=== PATIENT | female | born 1990 | race Caucasian/White ===

== ENCOUNTER 2022-08-18 17:29 | Inpatient (IN) | payer MEDICARE, OTHER ==
[~2022-08-18] VITALS: Ht 167.6 cm; Wt 90.9 kg
[2022-08-18] MEDS ORDERED: ESTR-95 PO (17:55)
[2022-08-18] MEDS ORDERED: CITA10TA99 PO (17:55)
[2022-08-18] MEDS ORDERED: SPIR50TA27 PO (17:55)
[2022-08-18] MEDS ORDERED: LAMO100 PO (17:55)
[2022-08-18 20:45] LABS: BASOPHILS % (AUTO) 1.2 % (0.0-2.0); EOSINOPHILS % (AUTO) 8.2 % (1.0-6.0); HEMATOCRIT 37.7 % (36-46); HEMOGLOBIN 12.6 g/dL (12.0-16.0); LYMPHOCYTES # (AUTO) 2.2 K/uL (1.0-4.8); LYMPHOCYTES % (AUTO) 21.7 % (22.0-44.0); MEAN CORPUSCULAR HEMOGLOBIN 29.2 pg (26.0-34.0); MEAN CORPUSCULAR HGB CONC 33.4 G/dL (31.0-37.0); MEAN CORPUSCULAR VOLUME 87 fL (80-100); MONOCYTES # (AUTO) 0.7 K/uL (0.1-1.0); MONOCYTES % (AUTO) 7.1 % (2.0-9.0); NEUTROPHILS # (AUTO) 6.3 K/uL (1.8-7.7); NEUTROPHILS % (AUTO) 61.8 % (40.0-70.0); PLATELET COUNT (AUTO) 447 K/uL (150-450); RED BLOOD CELL COUNT(AUTO) 4.31 MIL/uL (4.00-5.20); RED CELL DISTRIBUTION WIDTH 13.6 % (11.5-14.5)
[2022-08-18] MEDS ORDERED: HALOPERIDOL 5 MG TABLET PO ONE (20:45)
[2022-08-18] MEDS ORDERED: LORazepam 2 MG TABLET PO ONE (20:45)
[2022-08-18 20:55] LABS: ANION GAP 7 mmol/L (8-16); CALCIUM, TOTAL 9.7 mg/dL (8.8-10.5); CARBON DIOXIDE 28 mmol/L (22-29); CHLORIDE 98 mmol/L (98-107); CREATININE 0.84 mg/dL (0.60-1.30); GLUCOSE,RANDOM 97 mg/dL (70-110); POTASSIUM 4.1 mmol/L (3.5-5.1); SODIUM SERUM 133 mmol/L (136-145); UREA NITROGEN, BLOOD 11 mg/dL (7-18)
[2022-08-18 20:56] LABS: GLOMERULAR FILTR. RATE CALC > 60 mL/min (>60)
[2022-08-18 21:00] LABS: ALANINE AMINOTRANSFERASE 34 U/L (12-78); ALBUMIN 3.6 g/dL (3.4-5.0); ALKALINE PHOSPHATASE 40 U/L (46-116); ASPARTATE AMINOTRANSFERASE 34 U/L (15-37); BILIRUBIN,TOTAL 0.3 mg/dL (0.1-1.0); TOTAL PROTEIN, SERUM 7.6 g/dL (6.4-8.2)
[2022-08-18 23:38] LABS: COVID AG,FIA SOURCE NASAL SWAB
[2022-08-19] MEDS ORDERED: ZOLPIDEM TARTRATE 10 MG TABLET PO PRN (00:30)
[2022-08-19] MEDS ORDERED: HALOPERIDOL 5 MG TABLET PO PRN (00:30)
[2022-08-19] MEDS ORDERED: LORazepam 2 MG TABLET PO PRN (00:30)
[2022-08-19] MEDS ORDERED: ONDANSETRON HCL 4 MG/2 ML VIAL IVP PRN ×2 (02:00→11:00)
[2022-08-19] MEDS ORDERED: 0.9% SODIUM CHLORIDE 10 ML SYRINGE IVP PRN (02:00)
[2022-08-19] MEDS ORDERED: ACETAMINOPHEN 325 MG TABLET PO PRN ×2 (02:00→11:00)
[2022-08-19] MEDS ORDERED: BENZONATATE 100 MG CAPSULE PO ONE (04:45)
[2022-08-19] MEDS ORDERED: IPRATROPIUM BROMIDE 0.5 MG/2.5 ML NEB SOLUTION NEB PRN (11:00)
[2022-08-19] MEDS ORDERED: BISACODYL 10 MG RECTAL RECTAL SUPPOSITORY PR PRN (11:00)
[2022-08-19] MEDS ORDERED: ALBUTEROL SULFATE 2.5 MG/0.5 ML NEB SOLUTION NEB PRN (11:00)
[2022-08-19] MEDS ORDERED: ZOLPIDEM TARTRATE 5 MG TABLET PO PRN (11:00)
[2022-08-19] MEDS ORDERED: MAGNESIUM HYDROXIDE SUSPENSION 30 ML UDCUP PO PRN (11:00)
[2022-08-19] MEDS: HEPARIN SODIUM,PORCINE 5,000 UNITS/ML VIAL SQ SCH ×2 (16:17→23:00)
[2022-08-19] MEDS ORDERED: PROG100C24 PO (20:19)
[2022-08-19] MEDS ORDERED: CITA-144 PO (20:19)
[2022-08-19] MEDS ORDERED: FINA1TAB17 PO (20:19)
[2022-08-19 20:45] VITALS: BP 136/99
[2022-08-19] MEDS: DOCUSATE SODIUM 100 MG CAPSULE PO SCH (21:00)
[2022-08-19] MEDS: SPIRONOLACTONE 50 MG TABLET PO SCH (21:57)
[2022-08-19] MEDS: ESTRADIOL 1 MG TABLET PO SCH (22:59)
[2022-08-20 04:54] VITALS: BP 109/79
[2022-08-20 08:06] VITALS: BP 124/75
[2022-08-20 08:52] LABS: BASOPHILS % (AUTO) 0.7 % (0.0-2.0); EOSINOPHILS % (AUTO) 9.9 % (1.0-6.0); HEMATOCRIT 37.1 % (36-46); HEMOGLOBIN 12.4 g/dL (12.0-16.0); LYMPHOCYTES # (AUTO) 2.1 K/uL (1.0-4.8); LYMPHOCYTES % (AUTO) 26.1 % (22.0-44.0); MEAN CORPUSCULAR HEMOGLOBIN 29.2 pg (26.0-34.0); MEAN CORPUSCULAR HGB CONC 33.4 G/dL (31.0-37.0); MEAN CORPUSCULAR VOLUME 87 fL (80-100); MONOCYTES # (AUTO) 0.5 K/uL (0.1-1.0); MONOCYTES % (AUTO) 6.3 % (2.0-9.0); NEUTROPHILS # (AUTO) 4.6 K/uL (1.8-7.7); PLATELET COUNT (AUTO) 418 K/uL (150-450); RED BLOOD CELL COUNT(AUTO) 4.25 MIL/uL (4.00-5.20); RED CELL DISTRIBUTION WIDTH 13.7 % (11.5-14.5)
[2022-08-20] MEDS: DOCUSATE SODIUM 100 MG CAPSULE PO SCH ×3 (09:00→21:08)
[2022-08-20] MEDS: PANTOPRAZOLE SODIUM 40 MG/VIAL IVP SCH (09:00)
[2022-08-20] MEDS ORDERED: ESTRADIOL 1 MG TABLET PO SCH (09:00)
[2022-08-20 09:46] LABS: ALANINE AMINOTRANSFERASE 51 U/L (12-78); ALBUMIN 3.2 g/dL (3.4-5.0); ALKALINE PHOSPHATASE 37 U/L (46-116); ANION GAP 9 mmol/L (8-16); ASPARTATE AMINOTRANSFERASE 67 U/L (15-37); BILIRUBIN,TOTAL 0.4 mg/dL (0.1-1.0); CALCIUM, TOTAL 9.1 mg/dL (8.8-10.5); CARBON DIOXIDE 25 mmol/L (22-29); CHLORIDE 98 mmol/L (98-107); GLUCOSE,RANDOM 168 mg/dL (70-110); POTASSIUM 3.7 mmol/L (3.5-5.1); SODIUM SERUM 132 mmol/L (136-145); TOTAL PROTEIN, SERUM 7.1 g/dL (6.4-8.2); UREA NITROGEN, BLOOD 10 mg/dL (7-18)
[2022-08-20 09:47] LABS: GLOMERULAR FILTR. RATE CALC > 60 mL/min (>60)
[2022-08-20] MEDS: LamoTRIgine 100 MG TABLET PO SCH (09:56)
[2022-08-20] MEDS: HEPARIN SODIUM,PORCINE 5,000 UNITS/ML VIAL SQ SCH ×3 (09:56→23:33)
[2022-08-20] MEDS: SPIRONOLACTONE 50 MG TABLET PO SCH ×2 (09:56→21:08)
[2022-08-20] MEDS: ESTRADIOL 1 MG TABLET PO SCH ×2 (09:56→21:08)
[2022-08-20] MEDS ORDERED: LamoTRIgine 100 MG TABLET PO SCH (10:30)
[2022-08-20] MEDS: ESCITALOPRAM OXALATE 10 MG TABLET PO SCH (11:41)
[2022-08-20 15:46] VITALS: BP 131/79
[2022-08-20] MEDS: GuaiFENesin/D-METHORPHAN [SUGAR-FREE] 200-20MG/10 ML SYRUP UDCUP PO PRN ×2 (16:50→21:08)
[2022-08-20] MEDS: BENZONATATE 100 MG CAPSULE PO SCH ×2 (16:50→23:33)
[2022-08-20 19:51] VITALS: BP 129/77
[2022-08-21 05:07] VITALS: BP 127/81
[2022-08-21 07:43] VITALS: BP 128/79
[2022-08-21] MEDS: ESTRADIOL 1 MG TABLET PO SCH ×2 (09:11→21:16)
[2022-08-21] MEDS: LamoTRIgine 100 MG TABLET PO SCH (09:11)
[2022-08-21] MEDS: HEPARIN SODIUM,PORCINE 5,000 UNITS/ML VIAL SQ SCH ×2 (09:11→16:30)
[2022-08-21] MEDS: BENZONATATE 100 MG CAPSULE PO SCH ×2 (09:12→16:30)
[2022-08-21] MEDS: DOCUSATE SODIUM 100 MG CAPSULE PO SCH ×2 (09:12→21:16)
[2022-08-21] MEDS: SPIRONOLACTONE 50 MG TABLET PO SCH ×2 (09:12→21:16)
[2022-08-21] MEDS: PANTOPRAZOLE SODIUM 40 MG/VIAL IVP SCH (09:12)
[2022-08-21] MEDS: ESCITALOPRAM OXALATE 10 MG TABLET PO SCH (09:13)
[2022-08-21] MEDS: GuaiFENesin/D-METHORPHAN [SUGAR-FREE] 200-20MG/10 ML SYRUP UDCUP PO PRN ×3 (09:19→21:16)
[2022-08-21 13:43] LABS: AMPHET/METH SCREEN,URINE NEGATIVE (NEGATIVE); BARBITURATE SCREEN, URINE NEGATIVE (NEGATIVE); BENZODIAZEPINES SCREEN,URINE NEGATIVE (NEGATIVE); CANNABINOID SCREEN,URINE NEGATIVE (NEGATIVE); COCAINE SCREEN,URINE NEGATIVE (NEGATIVE); METHADONE SCREEN, URINE NEGATIVE (NEGATIVE); OPIATE SCREEN,URINE NEGATIVE (NEGATIVE)
[2022-08-21 13:47] LABS: PHENCYCLIDINE SCREEN,URINE NEGATIVE (NEGATIVE)
[2022-08-21 15:38] VITALS: BP 135/90
[2022-08-21] MEDS ORDERED: ESCI10 PO (16:27)
[2022-08-21] MEDS ORDERED: GUAIFDM PO (16:27)
[2022-08-21] MEDS ORDERED: LAMO100 PO (16:27)
[2022-08-21] MEDS ORDERED: BENZ-70 PO (16:27)
[2022-08-21 20:47] VITALS: BP 133/86
[2022-08-22] MEDS: HEPARIN SODIUM,PORCINE 5,000 UNITS/ML VIAL SQ SCH ×4 (00:57→23:17)
[2022-08-22] MEDS: BENZONATATE 100 MG CAPSULE PO SCH ×4 (00:59→23:17)
[2022-08-22 04:42] VITALS: BP 131/90
[2022-08-22 07:33] VITALS: BP 123/75
[2022-08-22] MEDS: PANTOPRAZOLE SODIUM 40 MG/VIAL IVP SCH (09:00)
[2022-08-22] MEDS: DOCUSATE SODIUM 100 MG CAPSULE PO SCH ×3 (11:06→20:47)
[2022-08-22] MEDS: SPIRONOLACTONE 50 MG TABLET PO SCH ×2 (11:06→20:44)
[2022-08-22] MEDS: ESCITALOPRAM OXALATE 10 MG TABLET PO SCH (11:07)
[2022-08-22] MEDS: LamoTRIgine 100 MG TABLET PO SCH (11:07)
[2022-08-22] MEDS: ESTRADIOL 1 MG TABLET PO SCH ×2 (11:07→20:44)
[2022-08-22 14:05] LABS: COVID AG,FIA SOURCE NASAL SWAB
[2022-08-22 15:56] VITALS: BP 133/94
[2022-08-22 19:56] VITALS: BP 143/89
[2022-08-22] MEDS: GuaiFENesin/D-METHORPHAN [SUGAR-FREE] 200-20MG/10 ML SYRUP UDCUP PO PRN (20:44)
[2022-08-23 04:43] VITALS: BP 137/72
[2022-08-23 08:18] VITALS: BP 127/77
[2022-08-23] MEDS: DOCUSATE SODIUM 100 MG CAPSULE PO SCH (09:00)
[2022-08-23] MEDS: PANTOPRAZOLE SODIUM 40 MG/VIAL IVP SCH (09:00)
[2022-08-23] MEDS: HEPARIN SODIUM,PORCINE 5,000 UNITS/ML VIAL SQ SCH (09:39)
[2022-08-23] MEDS: GuaiFENesin/D-METHORPHAN [SUGAR-FREE] 200-20MG/10 ML SYRUP UDCUP PO PRN (09:39)
[2022-08-23] MEDS: ESTRADIOL 1 MG TABLET PO SCH (09:40)
[2022-08-23] MEDS: SPIRONOLACTONE 50 MG TABLET PO SCH (09:40)
[2022-08-23] MEDS: LamoTRIgine 100 MG TABLET PO SCH (09:40)
[2022-08-23] MEDS: ESCITALOPRAM OXALATE 10 MG TABLET PO SCH (09:40)
[2022-08-23] MEDS: BENZONATATE 100 MG CAPSULE PO SCH (09:41)
[2022-08-23 15:45] VITALS: BP 144/91
== END 2022-08-23 16:00 | disposition home or self-care (01) | DRG 178 ==
LOC: EMS 17:32 → 6N 08-19 18:38
PROVIDERS: ADMIT Hospitalist; ATTEND Hospitalist
DX: U07.1 COVID-19 (principal); F31.4 Bipolar disorder, current episode depressed, severe, without psychotic features; R45.851 Suicidal ideations; F41.9 Anxiety disorder, unspecified; Z59.00 Homelessness unspecified; Z79.899 Other long term (current) drug therapy
CPT/HCPCS: 80053; 85025; C9113; G0480; J1644